=== PATIENT | female | born 1995 | race Caucasian/White ===

== ENCOUNTER 2024-09-26 02:38 | Emergency (ER) | payer SELFPAY ==
[~2024-09-26] VITALS: Ht 165.1 cm; Wt 77.3 kg
[2024-09-26 03:00] VITALS: TEMP 99.605408
[2024-09-26 04:52] LABS: PLATELET COUNT (AUTO) 393 K/uL (150-450); RED BLOOD CELL COUNT(AUTO) 4.63 MIL/uL (4.00-5.20); RED CELL DISTRIBUTION WIDTH 13.4 % (11.5-14.5); WHITE BLOOD COUNT (AUTO) 11.0 K/uL (4.5-11.0)
[2024-09-26 04:58] LABS: CALCIUM, TOTAL 8.2 mg/dL (8.8-10.5); CREATININE 0.83 mg/dL (0.60-1.30); GLOMERULAR FILTR. RATE CALC > 60 mL/min (>60); GLUCOSE,RANDOM 107 mg/dL (70-110); SODIUM SERUM 141 mmol/L (136-145); UREA NITROGEN, BLOOD 17 mg/dL (7-18)
[2024-09-26 05:05] LABS: APPEARANCE,URINE HAZY (CLEAR); GLUCOSE, URINE (UA) NEGATIVE (NEGATIVE); LEUKOCYTE ESTERASE ,URINE MODERATE (NEGATIVE); OCCULT BLOOD,URINE NEGATIVE (NEGATIVE); PH,URINE DRUG SCREEN 6.0 (5.0-8.0); SPECIFIC GRAVITIY, URINE 1.032 (1.003-1.030)
[2024-09-26 05:11] LABS: ALCOHOL, URINE DRUG SCREEN NEGATIVE (NEGATIVE); AMPHET/METH SCREEN,URINE POSITIVE (NEGATIVE); BARBITURATE SCREEN, URINE NEGATIVE (NEGATIVE); CANNABINOID SCREEN,URINE NEGATIVE (NEGATIVE); COCAINE SCREEN,URINE NEGATIVE (NEGATIVE); METHADONE SCREEN, URINE NEGATIVE (NEGATIVE)
[2024-09-26 05:22] LABS: NITRATE,URINE POSITIVE (NEGATIVE)
[2024-09-26 05:23] LABS: SQUAMOUS EPITHELIAL CELL,UR Few /LPF (None Seen)
[2024-09-26 05:32] VITALS: BP 133/82; PULSE 90; RESP 18; O2SAT 99
[2024-09-26] MEDS ORDERED: CEPH-558 PO (05:33)
== END 2024-09-26 06:30 | disposition home or self-care (01) ==
LOC: EMS 02:41
DX: F15.90 Other stimulant use, unspecified, uncomplicated (principal); N39.0 Urinary tract infection, site not specified; R41.82 Altered mental status, unspecified
CPT/HCPCS: 99283; 80048; 81001; 85025; 87077; 87086; 36415; 80307; G0480; 87186